=== PATIENT | male | born 1975 ===

== ENCOUNTER 2025-04-28 11:21 | Emergency (ER) | payer OTHER ==
[2025-04-28] MEDS: Lidocaine 1% 5 ML VIAL INJECT ONE (11:44)
== END 2025-04-28 11:54 | disposition home or self-care (01) ==
LOC: DL.ED 11:21
DX: S61.041A Puncture wound with foreign body of right thumb without damage to nail, initial encounter (principal); W45.8XXA Other foreign body or object entering through skin, initial encounter
CPT/HCPCS: 10120; 99282; 99283; J2003